=== PATIENT | female | born 1970 | race Caucasian/White ===

== ENCOUNTER → 2020-11-05 06:59 | Outpatient (CLI) | payer OTHER, SELFPAY ==
[2020-11-05 22:47] LABS: SARS-CoV-2 RNA PCR Negative
== END ==
PROVIDERS: PCP Family Medicine; Visit Provider Nurse Practitioner Family
DX: J40 Bronchitis, not specified as acute or chronic (principal); Z20.822 Contact with and (suspected) exposure to COVID-19
CPT/HCPCS: C9803; U0003; U0005

== ENCOUNTER 2020-11-05 10:56 | Outpatient (CLI) | payer OTHER, SELFPAY ==
--- NOTE | ~2020-11-05 | XR_ITS ---
EXAMINATION: XR chest 2V DATE: 11/05/2020 11:17 INDICATION: Cough TECHNIQUE: PA and lateral views of the chest are obtained. COMPARISON: 05/12/2019 FINDINGS: There are minimal opacities in the posterior costophrenic angle on the lateral view. There is no pleural effusion or pneumothorax. The cardiomediastinal silhouette is normal. There is moderate thoracic spondylosis. Surgical clips in the right upper quadrant are likely from prior cholecystecto my. IMPRESSION: 1. Minimal airspace opacities of the lung bases, likely atelectasis. Reviewed, dictated and finalized at location A. ONAL LOSS PREVENTION MANAGER
== END 2020-11-05 10:57 | disposition home or self-care (01) ==
PROVIDERS: PCP Family Medicine; Visit Provider Nurse Practitioner Family
DX: R05 Cough (principal); R91.8 Other nonspecific abnormal finding of lung field
CPT/HCPCS: 71046; C9803; U0003; U0005

== ENCOUNTER 2021-01-16 08:00 | Outpatient (RCR) | payer OTHER, SELFPAY ==
--- NOTE | 2020-11-27 11:46 | OTOPEVAL ---
OCCUPATIONAL THERAPY INITIAL EVALUATION REPORT 11/27/20 Thank you for referring Beatrice Wu to [facility].? The patient is scheduled to be seen for therapy?2x/week for 4 weeks. Please review, sign, date and return this plan of care MARTINEZ. I agree with and certify that the following plan of care is medically necessary. Referring Physician Date Referring Provider: Eulogio York MD *OT Outpatient Evaluation Start: 11/27/20 10:32 Therapy Assessment Status Assessment Status Assessment Status Evaluation Outpatient Past Medical History Past Medical History Source of Past Medical History Recalled from Previous Visit, Confirmed with Patient/Family Neurological History Hx Neurological Disorders No Significant History Cardiovascular History Hx Hypertension Yes Hx Vascular Surgery Yes: iliac stent Respiratory History Hx Bronchitis Yes Gastrointestinal History Hx Gall Bladder Disease Yes: gall bladder removal Genitourinary History Hx Genitourinary Disorders No Significant History Musculoskeletal History Hx Arthritis Yes Hx Back Pain Yes Hx Fibromyalgia Yes Evaluation Information Problem Diagnosis right radial tunnel syndrome, right lateral epicondylitis Additional Evaluation Detail 10/08/20: Right radial tunnel release and right lateral epicondyle debridement Subjective Information Patient states that she has Query Text:As Reported By Patient/ been heavily favoring the left Family UE with ADLs, but she has been trying to use the right arm for light tasks too. She reports difficulties with carrying a laundry basket, lifting pans out of the oven, dishes, putting her hair in a ponytail, and pinching/pulling up pants. 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 She is currently off work. PSFS: Pain Assessment Timing of Pain Assessment Timing of Pain Assessment Assessment Pain Scale Pain Scale Used Numeric (1 - 10) Self Report Pain Assessment Right Elbow(s) Reported Pain Level 3 Pain Description Aching
--- NOTE | 2020-12-31 09:27 | OTOPEVAL ---
OCCUPATIONAL THERAPY RE-EVALUATION REPORT 12/31/20 Thank you for referring Beatrice Wu to [facility].? The patient is scheduled to be seen for continued occupational therapy? 2x/week for 4 weeks. Please review, sign, date and return this plan of care MARTINEZ. I agree with and certify that the following plan of care is medically necessary. Referring Physician Date Referring Provider: Eulogio Mata MD Dy *OT Outpatient Evaluation Start: 11/27/20 10:32 Freq: Status: Active Protocol: Document 12/31/20 08:34 LEVI (Rec: 12/31/20 09:22 LEVI [email or web address]) Evaluation Information Problem Diagnosis right radial tunnel syndrome, right lateral epicondylitis Additional Evaluation Detail 10/08/20: Right radial tunnel release and right lateral epicondyle debridement Patient has been participating in outpatient hand therapy 2x /week x4 weeks, beginning 11/27. Therapy has been focusing on pain management, scar management, ROM/stretching, and progressive strengthening of the right elbow, forearm, wrist, and hand. Subjective Information Patient states that she has Query Text:As Reported By Patient/ been using the right UE for Family more ADL tasks and making her right arm do tasks that she may be hesitant to do. Reports return to normal ROM but does have some shakiness due to weakness. She states she is now able to carry a laundry basket, stating, It hurts, but I can do it. She reports no longer having difficulties with putting her hair in a ponytail and some soreness with pinching and pulling up her pants. Patient has returned to work, light duty. New orders today report continued lifting restriction of 20#. Pain Assessment Timing of Pain Assessment Timing of Pain Assessment Re-assessment Pain Scale Pain Scale Used Numeric (1 - 10) Self Report Pain Assessment Right Elbow(s) Reported Pain Level 3 Pain Description Soreness Lowest Pain Intensity 0
--- NOTE | 2021-01-07 09:29 | PCOTNOTE ---
Patient called & cancelled scheduled appointment this date due to not feeling well.
--- NOTE | 2021-01-16 08:13 | OTOPEVAL ---
OCCUPATIONAL THERAPY RE-EVALUATION AND DISCHARGE SUMMARY 01/16/21 Patient presents today after an additional 2 weeks of therapy after her last re-evaluation. Today the right UE has returned to normal strength and functional use. Her pain has also reduced to 0/10 at rest with some instances of increasing to 2/10. She is currently independent with non-medication pain management techniques, stretching, and strengthening HEP. Discharging today with goals met. Thank you for referring Beatrice Wu to [facility].?Please review, sign, date and return this D/C Summary MARTINEZ. I agree with and certify that the following plan of care is medically necessary. Referring Physician Date Referring Provider: Eulogio Mata MD Dy *OT Outpatient Re-Evaluation Start: 11/27/20 10:32 Evaluation Information Problem Diagnosis right radial tunnel syndrome, right lateral epicondylitis Additional Evaluation Detail 10/08/20: Right radial tunnel release and right lateral epicondyle debridement Patient has been participating in outpatient hand therapy 2x /week x6 weeks, beginning 11/27. Therapy has been focusing on pain management, scar management, ROM/stretching, and progressive strengthening of the right elbow, forearm, wrist, and hand. She has been very compliant with all materials. Subjective Information Patient states that she has Query Text:As Reported By Patient/ returned to normal right UE Family use. She states she no longer has shakiness in the arm with use, no longer has pain when carrying a laundry basket, and no pain or difficulties with picking up her grandchild. She states she feels ready to be off light duty at work and return to normal tasks. Patient has returned to work, light duty. New orders today report continued lifting restriction of 20#. She returns for MD follow up this Wednesday, 01/20. Pain Assessment Timing of Pain Assessment Timing of Pain Assessment Re-assessment Pain Scale Pain Scale Used Numeric (1 - 10) Self Report Pain Assessment Right Elbow(s) Reported Pain Level 0 Lowest Pain Intensity 0 Greatest Pain Intensity 2
== END 2021-01-16 11:53 | disposition home or self-care (01) ==
LOC: ANHOT 08:00
PROVIDERS: PCP Family Medicine
DX: G56.30 Lesion of radial nerve, unspecified upper limb (principal); M77.11 Lateral epicondylitis, right elbow
CPT/HCPCS: 97018; 97035; 97110; 97140; 97165

== ENCOUNTER → 2021-07-07 14:05 | Outpatient (CLI) | payer OTHER, SELFPAY ==
--- NOTE | ~2021-07-07 | XR_ITS ---
The EXAMINATION: XR chest 2V 07/07/2021 14:38 INDICATION: Pneumonia. PROCEDURE: 2 view chest COMPARISON: Comparison to multiple prior studies sequentially, with oldest reviewed study dated 10/12. FINDINGS: The lungs are clear. The cardiomediastinal silhouette is within normal limits. There are no pleural effusions. There is no pneumothorax suspected. IMPRESSION: 1: NO ACUTE CARDIOPULMONARY DISEASE. Reviewed, dictated and finalized at location A. H MOLDER
== END ==
PROVIDERS: PCP Family Medicine; Visit Provider Nurse Practitioner Family
DX: J18.9 Pneumonia, unspecified organism (principal)
CPT/HCPCS: 71046

== ENCOUNTER 2022-01-15 23:08 | Observation (INO) | payer OTHER, SELFPAY ==
--- NOTE | ~2022-01-15 | CT_ITS ---
EXAMINATION: CT brain wo con INDICATION: Dizziness COMPARISON: 09/26/2018 TECHNIQUE: Standard unenhanced head CT. The dose-length product (DLP) was 605.33 mGy-cm. The mA was a djusted according to patient size. Iterative reconstruction technique was employed. FINDINGS: There is no intracranial hemorrhage, acute infarction, or abnormal mass lesion. The ventric les are normal. There is no abnormal mass effect or midline shift. The boyer-white matter differentiat ion is normal. The basal cisterns are patent. Intracranial calcified cerebral atherosclerosis is note d. The orbits are normal. The paranasal sinuses, mastoids and calvarium are normal. IMPRESSION: 1. No acute intracranial abnormality. Reviewed, dictated and finalized at location A.
--- NOTE | ~2022-01-15 | XR_ITS ---
EXAMINATION: XR chest 1V portable INDICATION: Dizziness TECHNIQUE: Portable AP chest at 2339 hours COMPARISON: 07/07/2021 FINDINGS: The lungs are free of acute opacities. There is no pleural effusion or pneumothorax. The ca rdiomediastinal silhouette is normal. IMPRESSION: 1. No acute cardiopulmonary abnormality. Reviewed, dictated and finalized at location A.
[2022-01-15 23:09] VITALS: BP 130/72; PULSE 61; RESP 18; TEMP 36.6; O2SAT 100
[2022-01-15 23:33] VITALS: BP 130/68; PULSE 58
--- NOTE | 2022-01-15 23:33 | ECG_ITS ---
Measurements Intervals [place] Rate: 57 P: 56 WV: 145 QRS: 11 QRSD: 90 T: 24 QT: 431 QTc: 420 Interpretive Statements SINUS BRADYCARDIA VOLTAGE CRITERIA FOR LVH BASELINE ARTIFACT- I, III, AVL BORDERLINE ECG Electronically Signed On 01-16-2022 6:34:30 CDT by Mitchell Thayer D.O.
--- NOTE | 2022-01-15 23:34 | ED.DIZZY ---
HPI - Dizziness General Chief Complaint: Dizziness Stated Complaint: dizziness Time Seen by Provider: 01/15/22 23:13 Source: RN notes reviewed History of Present Illness HPI Narrative: Patient presents emergency department from work for dizziness. Patient states she was upstairs working when she became very dizzy and states it feels like the room is spinning on her it is associated with nausea. She states that the symptoms began yesterday and continued this morning morning and then worsened this evening. She said over the past 3 days she has been having large amounts of nasal congestion as well as pain in her bilateral sinuses she also states that she has been having decreased hearing out of her left ear because it feels that it is clogged she states she been taking [id number] medication for the symptoms she denies any fevers or chills chest pain cough abdominal pain nausea vomiting or any other symptoms denies any numbness or tingling of the extremities denies any weakness of the extremities Related Data Allergies Allergy/AdvReac Type Severity Reaction Status Date / Time cefuroxime Allergy Intermediate HIVES, Verified 01/15/22 23:11 FACIAL SWELLING meloxicam Allergy Mild Swelling Verified 01/15/22 23:11 aspartame Allergy Unknown Rash Verified 01/15/22 23:11 Review of Systems Review of Systems: Gen.: Denies fevers or chills Eyes: Denies eye pain or visual change ENT: Reports nasal congestion Respiratory: Denies shortness of breath or cough CV: Denies chest pain or palpitations GI: Denies abdominal pain nausea, emesis Musculoskeletal: Denies back pain or muscle pain Neuro: See HPI Skin: Denies rash Except as documented, all other systems reviewed and negative [facility] Past Medical History Medical History (Updated 01/16/22 @ 03:29 by Tre Sheppard DO) Essential hypertension Surgical History Surgical History History of elbow surgery Family History Family History Mother Hypertension Depression Grandparent Hypertension Father Family history of coronary artery disease Hypertension Social History Social History Tobacco type: cigarettes Second hand tobacco smoke exposure: Yes Alcohol intake: current Substance use: never Substance use type: does not use 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 Gender identity (if verbalized by the patient): Female Exam Narrative: APPEARANCE: No acute distress, nontoxic, resting in bed HEENT: Normocephalic, atraumatic, left TM with small effusion present and mild erythema of the left TM, bilateral maxillary and frontal sinuses tender bilateral turbinates boggy or mucosa moist EYES: PERRL, EOMI NECK: Supple, nontender, full range of motion without pain, no meningismus RESPIRATORY: No respiratory distress, clear to auscultation bilaterally with no rhonchi wheezing or rales CARDIOVASCULAR: RRR s murmur ABDOMINAL: Soft, nontender, nondistended MUSCULOSKELETAL: Moves all extremities. No clubbing, cyanosis or edema. NEURO: A and O ?3, following commands, speech normal, cranial nerves II through XII grossly intact,muscle strength 5 out of 5 bilateral upper and lower extremities SKIN:: Warm, dry. Normal Color PSYCHIATRIC: Normal affect/mood Course Course Emergency Course: Patient continues to have dizziness of meclizine will give Valium Patient continues to have dizziness on road test following Valium will admit at this time Discussed with Dr. Correa agrees with admission Discussed with patient and family results of workup and diagnosis. Discussed need for admission. Patient and family understand and agree to current treatment plan Vital Signs Vital signs: Vital Signs Temperature 97.9 F 01/15/22 23:09 Pulse Rate 61 01/15/22 23:09 Respiratory Rate
[2022-01-15 23:47] VITALS: BP 137/76; PULSE 60; RESP 15; O2SAT 98
[2022-01-15 23:51] VITALS: BP 137/76; PULSE 61; RESP 17; O2SAT 99
[2022-01-15] MEDS: ONDANSETRON INJ 4 MG/2 ML VIAL IV PUSH (23:52)
[2022-01-15] MEDS: SODIUM CHLORIDE 0.9% IV 1,000 ML 999 ML IV CONT (23:52)
[2022-01-16] VITALS (12 sets, daily range): BP systolic 118–147; BP diastolic 63–80; PULSE 58–71; RESP 14–20; TEMP 35.7–36.7; O2SAT 96–100; BMI 42.8
[2022-01-16] MEDS: MECLIZINE HCL 25 MG TABLET PO
[2022-01-16 00:06] LABS: Basophils Absolute Auto 0.1 K/mm3 (0.0-0.1); Basophils Percent Auto 0.9 % (0.2-1.2); Eosinophils Absolute Auto 0.7 K/mm3 (0-0.3); Eosinophils Percent Auto 6.3 % (0-4.4); Hemoglobin 13.6 g/dL (12.0-15.0); Immature Granulocyte Absolute 0.02 K/mm3 (0.00-0.031); Immature Granulocyte Percent A 0.2 % (0-0.5); Lymphocytes Absolute Auto 3.93 K/mm3 (0.9-3.2); Lymphocytes Percent Auto 36.3 % (18.3-44.2); Mean Corpuscular HGB Conc 32.4 g/dl (32-36); Mean Corpuscular Volume 83.5 fl (80-100); Mean Platelet Volume 10.8 fl (7.4-10.4); Monocytes Absolute Auto 0.8 K/mm3 (0.1-0.6); Monocytes Percent Auto 7.7 % (2.6-8.5); Neutrophils Absolute Auto 5.3 K/mm3 (1.3-6.7); Neutrophils Percent Auto 48.6 % (45.5-73.1); Platelet Count Result 215 k/mm3 (150-375); Red Blood Count 5.03 M/mm3 (4.2-5.4); White Blood Count 10.8 K/mm3 (4.5-10.0)
[2022-01-16 00:12] LABS: Prothrombin Time 12.8 Seconds (11.1-14.7)
[2022-01-16 00:13] LABS: Partial Thromboplastin Time 28.8 SECONDS (22.3-36.8)
[2022-01-16 00:25] LABS: Alanine Aminotransferase 25 U/L (6-35); Albumin Level 4.1 g/dL (3.5-5.1); Alkaline Phosphatase 117 U/L (38-126); Anion Gap 9 mmol/L (8-16); Aspartate Amino Transferase 31 U/L (14-36); Bilirubin,Total 0.1 mg/dL (0.2-1.3); Blood Urea Nitrogen 16 mg/dL (7-17); Calcium 9.1 mg/dL (8.4-10.2); Carbon Dioxide 25 mmol/L (22-30); Chloride 105 mmol/L (98-107); Glucose 115 mg/dL (65-110); Potassium 3.4 mmol/L (3.4-5.0); Sodium 139 mmol/L (137-145)
[2022-01-16 00:33] LABS: Troponin I < 0.012 ng/mL (0.000-0.034)
[2022-01-16 00:55] LABS: SARS-CoV-2 RNA PCR Negative
[2022-01-16] MEDS: diazePAM INJ (*CRX) 10 MG/2 ML SYRINGE 2 MG IV PUSH (01:10)
[2022-01-16 01:11] LABS: Appearance Urine Clear (Clear); Bilirubin Urine Negative (Negative); Blood Urine Negative (Negative); Color Urine Yellow (Yellow); Glucose Urine UA Negative (Negative); Ketones Urine Negative (Negative); Leukocyte Esterase Ur Negative LEU/UL (Negative); Nitrate Urine Negative (Negative); Protein Urine Negative (Negative); Specific Grav Ur >= 1.030 (1.001-1.035); Urobilinogen Urine 0.2 mg/dL (<2.0)
[2022-01-16 01:15] LABS: Add Urine Microscopic? NO; Bacteria Urine Trace /hpf; Mucus Urine Rare /lpf; RBC Urine 0-2 /hpf (0-2); Squamous Epithelial Cell Urine Many /hpf (Few); WBC Urine 0-3 /hpf
--- NOTE | 2022-01-16 05:16 | ADMGEN ---
This patient, Beatrice Wu, was admitted to Medical Room [facility]- at 0450. Patient/family oriented to hospital policies and general routines including ID bracelet, bed and alarms, visiting hours, pain management, procedures, bathroom and other care routines, personal items, smoking policy, room service/diet, and visiting hours. Information on how to activate the Rapid Response Team has been discussed. Patient/Family are encouraged to report perceived risks to care and to ask questions if they do not understand what they are told or what they should do.
[2022-01-16 07:00] LABS: Troponin I < 0.012 ng/mL (0.000-0.034)
[2022-01-16] MEDS: ASPIRIN 81 MG ENTERIC TABLET PO (09:34)
[2022-01-16] MEDS: ENALAPRIL MALEATE 10 MG TABLET 20 MG PO (09:34)
[2022-01-16] MEDS: DULoxetine HCL 60 MG CAPSULE.DR PO (09:34)
[2022-01-16] MEDS: TRIAMTERENE 37.5 MG/HCTZ 25 MG (MAXZIDE) TABLET 1 TAB PO (09:35)
[2022-01-16 10:30] LABS: Troponin I < 0.012 ng/mL (0.000-0.034)
--- NOTE | 2022-01-16 10:56 | PM.IMHP ---
H&P: HPI History of Present Illness Date/Time: 01/16/22 10:56 Patient is a 51-year-old female with a history of hypertension. She presented to the emergency department from work due to dizziness. Patient reports that she was climbing up the stairs and working when she became very dizzy and felt like the room was spinning it and felt associated nausea. She states that her symptoms began yesterday and continued throughout the morning and recently reports getting over an upper respiratory infection. She did report that during the past 3 days she has had the large amounts of nasal congestion and pain to bilateral sinuses which may have contributed to this episode. She has decreased hearing out of her left ear in reports it feels clogged. She has been taking qbkr-pkm-uwhznai medications for her symptoms and denies any fever, chills, chest pain, abdominal pain and vomiting. She endorsed nausea with this episode. She denies any a numbness or tingling to the bilateral upper and lower extremities and weakness. If While in the emergency department labs and imaging were obtained. WBC 10.8, hemoglobin 13.6, hematocrit 42 and platelet count of 215, sodium 139, potassium 3.4, creatinine 0.8 and a BUN of 16. Normal LFTs and troponin was negative. UA negative. CT of the head did not report acute abnormalities and chest x-ray did not reveal acute cardiopulmonary disease. EKG was performed which revealed sinus bradycardia heart rate [address] changes to the inferior leads. Patient is being admitted for further evaluation. During my evaluation with the patient she did refuse to have the MRI of the brain performed, venous duplex of the left lower extremity and further workup. Patient wishes to be discharged although she continues to have dizziness with sitting or lying down. She has dizziness with ambulation. Will wait for further recommendations by Neurology. Chief Complaint: dizziness Review of Systems Review of Systems: All systems reviewed & are unremarkable except as noted in HPI and below PMFSH Past Medical History Medical History (Updated 01/16/22 @ 12:08 by Dalila Naranjo APRN) Essential hypertension Surgical History Surgical History History of elbow surgery Family History Family History Mother Hypertension Depression Grandparent Hypertension Father Family history of coronary artery disease Hypertension Social History Social History Smoking packs per day: 0.5 Smoking cigarettes per day: 10.0 Years smoked: 20 Smoking pack-years: 10.00 Smoking status: Current every day smoker Tobacco type: cigarettes Second hand tobacco smoke exposure: Yes Alcohol intake: current Substance use: never Substance use type: does not use 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 Gender identity (if verbalized by the patient): Female Spiritual care concerns: No Meds Home Medications and Allergies Home Medications Medication Instructions Recorded Confirmed Type aspirin 81 mg tablet,delayed 81 mg PO DAILY #30 tablet 08/29/19 01/16/22 Rx release albuterol sulfate 2.5 mg INHALATION TID PRN #90 ml 11/04/20 01/16/22 Rx alprazolam 0.5 mg tablet 0.5 mg PO BID #30 tablet 12/19/20 01/16/22 Rx albuterol sulfate 90 mcg/actuation 1 puff INHALATION Q4H PRN #8.5 g 07/11/21 01/16/22 Rx aerosol inhaler duloxetine 60 mg capsule,delayed 60 mg PO DAILY #30 cap 09/29/21 01/16/22 Rx release enalapril maleate 20 mg tablet 20 mg PO DAILY #30 tablet 10/29/21 01/16/22 Rx triamterene 75 0.5 tablet PO DAILY #90 tablet 12/17/21 01/16/22 Rx mg-hydrochlorothiazide 50 mg tablet Allergies Allergy/AdvReac Type Severity Reaction Status Date / Time cefuroxime Allergy Intermediate HIVES, Verified 01/15/22 23:11 FAC
[2022-01-16] MEDS: MECLIZINE HCL 12.5 MG TABLET PO (12:01)
--- NOTE | 2022-01-16 13:51 | WPDNEURCNPN ---
Assessment and Plan Additional Plan nonfocal neurological examination with the complaints of dizziness but without evidence of nystagmus or the cranial nerve deficit and also no evidence of the central signs patient is reluctant to have MRI will be able to be discharged with instruction to follow in the office if necessary with her of PMD, she does have edema of the lower extremity left more than the right for which venous Doppler X is being obtained and patient does have iliac stent on the right Consult date: 01/16/22 HPI: Beatrice Wu is a 51 year old female admitted to the hospital through the emergency room where she was brought with complaints of dizziness reportedly she was up stairs working when she became extremely dizzy as if the whole room was spinning on her along with the nausea symptomatology started at least 24 hours before and continued in the morning and worsen in the evening she has been experiencing large amount of rhinorrhea over the last 72 hours along with the facial pain. She does have ongoing history of cefuroxime allergy along with being allergic to meloxicam and aspartame in addition she does have ongoing history of hypertension she is a current alcohol intake but never substance user and she does smoke, initial evaluation in the Emergency Room documented her to have normal vital signs with normal CBC and normal basic metabolic panel and negative UA, CT scan of the head was negative for the bleed or space-occupying chest x-ray was negative Review of Systems Review of Systems: All systems reviewed & are unremarkable except as noted in HPI and below PMFSH Past Medical History Medical History Essential hypertension Surgical History Surgical History History of elbow surgery Family History Family History Mother Hypertension Depression Grandparent Hypertension Father Family history of coronary artery disease Hypertension Social History Social History Smoking packs per day: 0.5 Smoking cigarettes per day: 10.0 Years smoked: 20 Smoking pack-years: 10.00 Smoking status: Current every day smoker Tobacco type: cigarettes Second hand tobacco smoke exposure: Yes Alcohol intake: current Substance use: never Substance use type: does not use 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 Gender identity (if verbalized by the patient): Female Spiritual care concerns: No Meds Home Medications and Allergies Home Medications Medication Instructions Recorded Confirmed Type aspirin 81 mg tablet,delayed 81 mg PO DAILY #30 tablet 08/29/19 01/16/22 Rx release albuterol sulfate 2.5 mg INHALATION TID PRN #90 ml 11/04/20 01/16/22 Rx alprazolam 0.5 mg tablet 0.5 mg PO BID #30 tablet 12/19/20 01/16/22 Rx albuterol sulfate 90 mcg/actuation 1 puff INHALATION Q4H PRN #8.5 g 07/11/21 01/16/22 Rx aerosol inhaler duloxetine 60 mg capsule,delayed 60 mg PO DAILY #30 cap 09/29/21 01/16/22 Rx release enalapril maleate 20 mg tablet 20 mg PO DAILY #30 tablet 10/29/21 01/16/22 Rx triamterene 75 0.5 tablet PO DAILY #90 tablet 12/17/21 01/16/22 Rx mg-hydrochlorothiazide 50 mg tablet Allergies Allergy/AdvReac Type Severity Reaction Status Date / Time cefuroxime Allergy Intermediate HIVES, Verified 01/15/22 23:11 FACIAL SWELLING meloxicam Allergy Mild Swelling Verified 01/15/22 23:11 aspartame Allergy Unknown Rash Verified 01/15/22 23:11 Vital Signs Vital Signs - 24 hr 01/15/22 23:09 01/15/22 23:33 01/15/22 23:47 Temperature 36.6 C Pulse Rate 61 58 L 60 Respiratory Rate 18 15 Blood Pressure 130/72 130/68 137/76 Pulse Oximetry 100 98 01/15/22 23:51 01/16/22 00:01 01/16/22 01:01 Temperature Pulse Rate 61 69 64 Respiratory Rate 17 16 2
--- NOTE | 2022-01-16 15:00 | PM.DS ---
DS: Admitting Diagnosis Discharge Date 01/16/2022 Admitting Diagnosis Vertigo DS: Discharge Diagnosis Discharge Diagnosis (1) Vertigo: Code(s): R42 - Dizziness and giddiness Status: Acute Assessment and Plan: Monitor vital signs, obtain orthostatic vitals Neurology consulted for further evaluation, appreciate assistance and recommendations Obtain MRI of the brain , patient currently refusing Continue meclizine Monitor CBC, CMP and magnesium level (2) Essential hypertension: Code(s): I10 - Essential (primary) hypertension Status: Acute Assessment and Plan: Resume home medications (3) Swelling of lower extremity: Code(s): M79.89 - Other specified soft tissue disorders Status: Acute Assessment and Plan: Unilateral leg swelling, left greater than right. Obtain venous duplex. Patient reports that she has an iliac stent to the right.--patient refuses DS: Summary Hospital Course Reason for hospitalization: Vertigo Hospital Course: 51-year-old female with a history of hypertension. She presented to the emergency department from work due to dizziness. Patient reports that she was climbing up the stairs and working when she became very dizzy and felt like the room was spinning it and felt associated nausea. She states that her symptoms began yesterday and continued throughout the morning and recently reports getting over an upper respiratory infection. She did report that during the past 3 days she has had the large amounts of nasal congestion and pain to bilateral sinuses which may have contributed to this episode. She has decreased hearing out of her left ear in reports it feels clogged. She has been taking [id number] medications for her symptoms and denies any fever, chills, chest pain, abdominal pain and vomiting. She endorsed nausea with this episode. She denies any a numbness or tingling to the bilateral upper and lower extremities and weakness. If While in the emergency department labs and imaging were obtained. WBC 10.8, hemoglobin 13.6, hematocrit 42 and platelet count of 215, sodium 139, potassium 3.4, creatinine 0.8 and a BUN of 16. Normal LFTs and troponin was negative. UA negative. CT of the head did not report acute abnormalities and chest x-ray did not reveal acute cardiopulmonary disease. EKG was performed which revealed sinus bradycardia heart rate [address] changes to the inferior leads. Patient is being admitted for further evaluation. During my evaluation with the patient she did refuse to have the MRI of the brain performed, venous duplex of the left lower extremity and further workup. Patient wishes to be discharged although she continues to have dizziness with sitting or lying down. She has dizziness with ambulation. Will wait for further recommendations by Neurology. After neurology evaluated the patient they reported patient was able to go follow-up with them as an outpatient basis if she desired. Patient refused multiple imaging during the hospitalization. No acute concerns at the time of discharge. Patient appeared to be back at baseline. Status at Discharge Functional status at discharge: independent ambulation Overall status at discharge: patient is back to baseline Time Spent with Patient Time attestation: Total time spent providing and/or coordinating discharge services: Time spent: Less than 30 minutes Exam Narrative: General: No acute distress. Mental Status: Awake, alert and oriented to person, place, and time with clear speech. Skin: Skin in warm, dry and intact without rashes or lesions. Head: Normocephalic and atraumatic. Eyes: Conjunctivae are clear without exudates or hemorrhage. Sclera is non-icteric. EOM are intact, PERRLA. Ears: The external ear and canal are non-tender and without swelling or discharge. Nose: Nasal mucosa is pink and moist. Septum midline. Nares patent bilaterally. Throat: Oral mucosa pink an
--- NOTE | 2022-01-16 15:07 | PC.NURSE ---
Orders to perform swallowing screen by the RN. Pt has been observed and pt is having no difficulty at this time.
== END 2022-01-16 15:36 | disposition home or self-care (01) ==
LOC: ANHED 01-16 03:29 → ANH2MED 01-16 04:57
PROVIDERS: Admitting Provider Internal Medicine; Emergency Provider Emergency Medicine; PCP Family Medicine; Visit Provider Internal Medicine
DX: R42 Dizziness and giddiness (principal); I10 Essential (primary) hypertension; M79.89 Other specified soft tissue disorders; F17.210 Nicotine dependence, cigarettes, uncomplicated; Z79.82 Long term (current) use of aspirin; Z20.822 Contact with and (suspected) exposure to COVID-19
CPT/HCPCS: 36415; 70450; 71045; 80053; 81003; 84484; 85025; 85610; 85730; 93005; 96361; 96374; 97161; 97165; 99285; A9270; C9803; G0378; J2405; J3360; J7030; U0003; U0005

== ENCOUNTER 2022-06-05 07:59 | Outpatient (CLI) | payer OTHER, SELFPAY | END 2022-06-05 08:00 | disposition home or self-care (01) | LOC: ANHAUDIO 08:00 | PROVIDERS: PCP Family Medicine; Visit Provider Otolaryngology | DX: H91.93 Unspecified hearing loss, bilateral (principal) | CPT/HCPCS: 92557; 92567 ==

== ENCOUNTER 2023-11-24 16:44 | Emergency (ER) | payer OTHER, SELFPAY ==
[2023-11-24] VITALS (7 sets, daily range): BP systolic 122–145; BP diastolic 59–71; PULSE 60–72; RESP 14–20; O2SAT 98–100
--- NOTE | ~2023-11-24 | CT_ITS ---
EXAMINATION: CT brain wo con DATE: 11/24/2023 17:22 INDICATION: head injury . TECHNIQUE: Computed tomography (CT) of the head was performed without intravenous contrast. The mA wa s adjusted according to patient size. Iterative reconstruction technique was employed. The dose-lengt h product was 681.00 mGy-cm. COMPARISON: 01/16/2022. FINDINGS: No acute intracranial hemorrhage or extra-axial fluid collection. No hydrocephalus, mass, or herniation. No acute ischemic infarct. Unremarkable dural venous sinus attenuation. No acute osseous abnormality. The aerated spaces are clear. Atherosclerotic intracranial calcifications IMPRESSION: No acute intracranial process. Reviewed, dictated and finalized at location K.
--- NOTE | 2023-11-24 16:52 | ECG_ITS ---
Measurements Intervals [place] Rate: 64 P: 53 [place]: 137 QRS: -12 QRSD: 93 T: 72 QT: 419 QTc: 433 Interpretive Statements SINUS RHYTHM DELAYED PRECORDIAL R/S TRANSITION LEFT VENTRICULAR HYPERTROPHY WITH ST-T CHANGE BORDERLINE ECG COMPARED TO ECG 01/15/2022 23:54:02 SINUS RHYTHM NOW PRESENT Electronically Signed On 11-24-2023 19:21:53 CDT by Mitchell Thayer D.O.
--- NOTE | 2023-11-24 17:12 | ED.DIZZY ---
HPI - Dizziness General Chief Complaint: Syncope Stated Complaint: syncopal History of Present Illness HPI Narrative: 53-year-old male present to the emergency department for evaluation after having a syncopal episode. Patient does have history of hypertension and a few days ago patient's blood pressure was uncontrolled. At that time patient did take an extra enalapril. Patient did have follow-up with her primary care physician and patient's enalapril was increased from 20-40, patient's triamterene was increased and patient was started on Norvasc. Patient states that since increasing all of her medications she has had frequent episodes of lightheadedness and diaphoresis. Prior to arrival patient was walking to the bathroom when she had onset of lightheaded and dizziness. Patient did strike her head during the fall but denies any chest pain shortness of breath nausea vomiting diarrhea or other injury from the fall. Related Data Home Medications Medication Instructions Recorded Confirmed amoxicillin 875 mg-potassium 1 tablet PO BID 11/22/23 11/22/23 clavulanate 125 mg tablet Allergies Allergy/AdvReac Type Severity Reaction Status Date / Time cefuroxime Allergy Intermediate HIVES, Verified 11/22/23 17:42 FACIAL SWELLING meloxicam Allergy Mild Swelling Verified 11/22/23 17:42 aspartame Allergy Unknown Rash Verified 11/22/23 17:42 Review of Systems Review of Systems: All systems reviewed & are unremarkable except as noted in HPI and below PMFSH Past Medical History Medical History Essential hypertension Femoral artery stenosis Surgical History Surgical History History of elbow surgery Family History Family History Mother Hypertension Depression Grandparent Hypertension Diabetes mellitus Depression Father Family history of coronary artery disease Diabetes mellitus Hypertension Heart disease Social History Social History Smoking packs per day: 0.5 Smoking cigarettes per day: 10.0 Years smoked: 20 Smoking pack-years: 10.00 Smoking status: Current some day smoker Tobacco type: cigarettes Second hand tobacco smoke exposure: Yes Smoking end date: 08/30/16 Alcohol intake: current Substance use: never Substance use type: does not use Living arrangements: with family Occupation/Education: occupation 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 Gender identity (if verbalized by the patient): Female Spiritual care concerns: No Exam Narrative: APPEARANCE: Well appearing, no pain, no distress, well-nourished. HEAD: normocephalic, atraumatic. EYES: PERRLA/EOMI, conjunctivae clear. NOSE: Normal no drainage EARS:TMS clear with good light reflex. THROAT: Pharynx clear, no exudate. NECK: Supple. No adenopathy, no masses. RESPIRATORY: Airway patent, respirations nonlabored. Clear to auscultation bilaterally, no rales, rhonchi, wheezing. CARDIOVASCULAR: Regular rate and rhythm without murmurs rubs or gallops. ABDOMINAL: Soft, nontender, nondistended, normal bowel sounds MUSCULOSKELETAL: Moves all extremities. Strength/ROM intact, No edema, No calf tenderness. NEURO: Alert. Cranial nerves II through XII intact. Grossly intact SKIN: Warm, dry. Normal Color Course Course Emergency Course: Patient felt improved with treatment. Patient was discharged to home to follow-up with her physician as outpatient Vital Signs Vital signs: Vital Signs Pulse Rate 67 11/24/23 16:43 Respiratory Rate 17 11/24/23 16:43 Blood Pressure 125/59 L 11/24/23 16:43 Pulse Oximetry 100 11/24/23 16:43 Pulse Rate 62 11/24/23 19:11 Respiratory Rate 14 11/24/23 19:11 Blood Pressure 136/71 11/24/23 19:11 Pulse Oximetry 99 0
[2023-11-24 17:16] LABS: Prothrombin Time 13.7 Seconds (11.1-14.7)
[2023-11-24 17:17] LABS: Partial Thromboplastin Time 26.9 Seconds (22.3-36.8)
[2023-11-24 17:23] LABS: Alanine Aminotransferase 28 U/L (6-35); Albumin Level 4.3 g/dL (3.5-5.1); Alkaline Phosphatase 105 U/L (38-126); Anion Gap 8 mmol/L (4-12); Aspartate Amino Transferase 38 U/L (14-36); Bilirubin,Total 0.8 mg/dL (0.2-1.3); Blood Urea Nitrogen 25 mg/dL (7-17); Calcium 9.9 mg/dL (8.4-10.2); Carbon Dioxide 27 mmol/L (22-30); Chloride 102 mmol/L (98-107); Estimated CRCL calculation 48 ml/min; Estimated Glomerular Filt Rate 39; Glucose 115 mg/dL (65-110); Potassium 3.8 mmol/L (3.4-5.0); Sodium 137 mmol/L (137-145)
[2023-11-24] MEDS: SODIUM CHLORIDE 0.9% IV 1,000 ML 999 ML IV CONT (17:28)
[2023-11-24 17:29] LABS: NT Pro B Type Natriuretic Pept 50 pg/mL (19.9-100)
== END 2023-11-24 21:15 | disposition home or self-care (01) ==
PROVIDERS: Emergency Provider Emergency Medicine; PCP Family Medicine
DX: R55 Syncope and collapse (principal); I95.9 Hypotension, unspecified; I10 Essential (primary) hypertension; Z87.891 Personal history of nicotine dependence; Z79.82 Long term (current) use of aspirin; I51.7 Cardiomegaly
CPT/HCPCS: 36415; 70450; 80053; 83880; 85610; 85730; 93005; 96360; 96361; 99284; J7030